=== PATIENT | female | born 1995 | race Caucasian/White ===

== ENCOUNTER 2025-05-03 16:20 | Outpatient (REF) | payer OTHER, SELFPAY ==
--- NOTE | ~2025-05-03 | XR_ITS ---
EXAMINATION: XR KNEE, LEFT CLINICAL INFORMATION: M25.561 - Pain in right knee COMPARISON: None available. TECHNIQUE: Three views of the left knee. FINDINGS: There is no joint effusion. There are no osteophytes. There is mild narrowing of the medial joint space. XR/XR knee LT 3V IMPRESSION: Mild nonspecific narrowing of the medial joint space. Electronically signed by: Ramirez Flores MD 05/03/2025 05:15 PM EDT
--- OUTSIDE RECORDS SUMMARY | 2025-05-03 17:55 | XMS_ITS | Encounter Summary ---
Author Organization [facility] Address [address] [place] [address] Phone Care Team Providers Care O And M Supervisor Name Role Phone Marysol Summers DO Primary Care Provider Unavaila ble Encounter Details Date Type Department Care Team (Late st Contact Info) Description 06/17/2011 Conversion Encounter [facility] [address] [place] [address] Social History Tobacco Use Types Packs/Day Years Used Date Smoking Tobacco: Never Assessed Comments Unknown Sex and Gender Information Value Date Recorded Sex Assigned at Not on file Legal Sex Female 6:40 PM EDT Gender Identity Not on file Sexual Orientation Not on file documented as of this encounter Plan of Treatment Not on file documented as of this encounter Visit Diagnoses Not on filedocumented in this encounter Care Teams O And M Supervisor Relationship Specialty Start Date End Date Marysol Summers DO PCP - General 12/28/17 documented as of this encounter
--- OUTSIDE RECORDS SUMMARY | 2025-05-03 17:55 | XMS_ITS | Encounter Summary ---
Author Organization [facility] Address [address] [place] [address] Care Team Providers Care Stone Carver Name Role Phone Guillaume Barksdale MD Primary Care Provider Reason for Visit * Reason Onset Date Comments Pre Syncope 10/30/2024 Encounter Details Date Type Department Care Team ([facility] st Contact Info) Description 10/30/2024 Nurse Triage Adult Medicine [address] [phone] Guillaume Barksdale MD [address] [place] [address] Social History Tobacco Use Types Packs/Day Years Used Date Smoking Tobacco: Former Cigarettes Q uit: 10/21/2015 Smokeless Tobacco: Never Alcohol Use Standard Drinks/Week Comments Yes 0 (1 standard drink = 0.6 oz pur e alcohol) Comments Unknown Sex and Gender Information Value Date Recorded Sex Assigned at Not on file Legal Sex Female 10:03 PM EST Gender Identity Not on file Sexual Orientation Not on file documented as of this encounter Progress Notes * Jamila Short RN - 10/30/2024 10:10 AM EDT She states she is at work ([employer] [facility] [place] and is still feeling weak and jittery. I advised if still feeling weak and jittery following a pre-syncopal episode to be evaluated in the ER. Pt. Agrees and is at hospital at present time Answer Assessment - Initial Assessment Questions 1. DESCRIPTION: Describe your dizziness. After intercourse developed pelvic pain sharp and shoot / excessive cramping 2. LIGHTHEADED: Do you feel lightheaded? (e.g., somewhat faint, woozy, weak upon standing) [place] lightheaded/dizzy and sweaty and clammy vomited and approx 15-20 minutes after had fluttery feeling in chest 3. VERTIGO: Do you feel like either you or the room is spinning or tilting? (i.e., vertigo) no 4. SEVERITY: How bad is it? Do you feel like you are going to faint? Can you stand and walk? - MILD: Feels slightly dizzy, but walking normally. - MODERATE: Feels unsteady when walking, but not falling; interferes with normal activities (e.g., school, work). - SEVERE: Unable to walk without falling, or requires assistance to walk without falling; feels like passing out now. Moderate dizziness and lightheadedness after intercourse 5. ONSET: When did the dizziness begin? After intercourse 6. AGGRAVATING FACTORS: Does anything make it worse? (e.g., standing, change in head position) After sex 7. HEART RATE: Can you tell me your heart rate? How many beats in 15 seconds? (Note: Not all patients can do this.) 8. CAUSE: What do you think is causing the dizziness? (e.g., decreased fluids or food, diarrhea, emotional distress, heat exposure, new medicine, sudden standing, vomiting; unknown) Vomited 9. RECURRENT SYMPTOM: Have you had dizziness before? If Yes, ask: When was the last time? Whathappened that time? Yes also after intercourse once within the last year 10. OTHER SYMPTOMS: Do you have any other symptoms? (e.g., fever, chest pain, vomiting, diarrhea,bleeding) No fever chest pain , no sob at present time 11. : Is there any chance you are ? When was your last menstrual period? 1 week ago Protocols used: Dizziness - [id number] * Cathy Neff - 10/30/2024 9:28 AM EDT Patient almost passed out last night would like to speak to a triage nurse documented in this encounter Plan of Treatment Not on file documented as of this encounter Visit Diagnoses Not on filedocumented in this encounter Care Teams Stone Carver Relationship Specialty Start Date End Date Guillaume Barksdale MD PCP - General Internal Medicine 03/05/21 documented as of this encounter
--- OUTSIDE RECORDS SUMMARY | 2025-05-03 17:55 | XMS_ITS | Clinical Summary ---
Author Organization [facility] Address [address] [place] [id number] Phone Care Team Providers Care Student Counselor Name Role Phone Marysol Summers DO Primary Care Provider Unavaila ble Immunizations Immunization Administration Dates Next Due DTaP 5 10/08/1997, 7,1996,06/14 HPV, Quadrivalent 09/20/2008,05/01/2008,02/16/20 08 Hep A, Adult 06/21/2017 Hep B, ped/adol 1996,1996,1996 Hib (PRP-T) 03/14/1997, 7,1996,06/14 IPV 03/24/2001 Influenza, injectable, quadr ivalent, preservative free 06/22/2016 Influenza, injectable, triva lent, preservative free 08/31/2012 MMR 06/03/2000,09/02/1997 Meningococcal Conj (Menactra) MCV4P 01/28/2014,0 02/16/2008 OPV 1996,1996,1996 Td (adult) (Tenivac), 5 Lf t etanus toxoid, PF, adsorbed 02/16/2008 Tdap 01/31/2014 Varicella 05/15/1997 Social History Tobacco Use Types Packs/Day Years Used Date Smoking Tobacco: Former Comments:Former Smoker Comments Unknown Sex and Gender Information Value Date Recorded Sex Assigned at Not on file Legal Sex Female 6:40 PM EDT Gender Identity Not on file Sexual Orientation Not on file Last Filed Vital Signs Vital Sign Reading Time Taken Comments Blood Pressure - - Pulse 64 06/21/2017 11:13 AM EDT Temperature 37.2 C (98.9 F) 12/13/2017 4:19 PM EDT Respiratory Rate - - Oxygen Saturation - - Inhaled Oxygen Concentration - - Weight 58.7 kg (129 lb 4.8 oz) 12/13/2017 4:19 P M EDT Height 159.4 cm (5' 2.75 ) 12/13/2017 4:19 PM ED T Body Mass Index 23.09 12/13/2017 4:19 PM EDT Plan of Treatment Health Maintenance Due Date Last Done Comments Varicella Vaccines (2 of 2 - 2-dose childhood series) 07/01/2000 05/15/1997 Influenza Vaccines (#1) 2025 06/22/2016, 08/31 COVID-19 Vaccine ( season) 2025 DTaP,Tdap,and Td Vaccines (8 - Td or Tdap) 01/29/2029 01/29/2019, 01/31/2014, 02/16/2008, Additional history exists Hepatitis B Vaccines Completed 1996, 1996, 1996 HIB Vaccines Aged Out 03/14/1997, 09/23, 1996, Additional history exists No longer eligible based on patient's age to complete this topic MMR Vaccines Completed 06/03/2000, 09/02/1997 IPV Vaccines Completed 03/24/2001, 09/23, 1996, Additional history exists HPV Vaccines Completed 09/20/2008, 04/22, 02/16/2008 Meningococcal Vaccine Completed 01/28/2014, 008 Hepatitis A Vaccines Aged Out 06/21/2017 No long er eligible based on patient's age to complete this topic Men B Vaccine Aged Out No longer elig ible based on patient's age to complete this topic Pneumococcal Vaccine Aged Out No long er eligible based on patient's age to complete this topic Insurance [facility] MEDICAID Care Teams Student Counselor Relationship Specialty Start Date End Date Marysol Summers DO PCP - General 12/28/17
--- OUTSIDE RECORDS SUMMARY | 2025-05-03 17:55 | XMS_ITS | Clinical Summary ---
Author Organization [address] Address [address] [place] [phone] Phone Care Team Providers Care X Ray Operator Name Role Phone Guillaume Barksdale MD Primary Care Provider [phone] Allergies Active Allergy Reactions Criticality Noted Date Comments Banana 02/19/2021 Oas Blueberry Flavor 02/19/2021 OAS Kiwi (Actinidia Chinensis) 1 OAS [place] 02/19/2021 OAS Medications citalopram (CeleXA) 40 mg tablet Take 1 Tab by mouth daily. Active ibuprofen (ADVIL,MOTRIN) 800 mg tablet Take 1 Tablet by mouth every 8 hours as needed (with FULL meal for joint pain). 4 Active lamoTRIgine (LaMICtal) 100 mg tablet Take 100 mg by mouth daily. Active lamoTRIgine (LaMICtal) 25 mg tablet TAKE 1 TABLET BY MOUTH EVERY DAY FOR 14 DAYS THEN TAKE 2 TABLETS DAILY WITH 100 MG LAMOTRIGINE 1 Active linaCLOtide (Linzess) 145 mcg capsule Take 1 capsule by mouth daily. 1 Active LORazepam (ATIVAN) 1 mg tablet Take 1 Tablet by mouth 2 times daily as needed for Anxiety. 3 Active EPINEPHrine (EpiPen 2-Billy) 0.3 mg/0.3 mL injection Inject 0.3 mL (0.3 mg total) into the thigh 1 (one) time for 1 dose. 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 V24, [facility] V28) Scoliosis 01/29/2019 Overview (08/02/2024): Braced age 12-13 for 1 year. No longer follows at [facility] for this. Disc degeneration of L2 Anxiety 01/22/2019 Irritable bowel syndrome 01/22/2019 Overview (08/02/2024): Dr Iqbal Immunizations Name Administration Dates Next Due DTaP (Infanrix) 6wks to less than 7yo ,1996,1996,06/14 PYcO-TEN-UWK (Pentacel) 2mo to less than 5yo 03/14/1997,1996,1996,06/14 HPV, Quadrivalent 09/20/2018,05/01/2008,02/16/20 08 Hepatitis A Adult (Havrix; V aqta) 19yo and older 01/23/2018,06/21/2017 Hepatitis B Pediatric (Enger ix B; Recombivax HB) to less than 20 yo 1996,1996,1996 IPV Inactivated polio (Ipol) 6wks and older 03/24/2001,1996,1996,06/14 Influenza, Unspecified 06/08/2023,06/07/2022,07/2021 MMR, measles mumps and rubel la Live (Priorix; M-M-R II) 12mo and older 02/12/2021,06/03/2004,09/02/1997 Meningococcal MCV4P 01/28/2014,02/16/2008 Pfizer SARS-CoV-2 COVID-19, mRNA, LNP-S, preservative free 01/22/2021 Td Tetanus diptheria (Tdvax) 7yo and older 02/16/2008 Tdap Tetanus diptheria acell ular pertussis (Boostrix; Adacel) 7yo and older 01/29/2019,01/31/2014 Varicella live (Varivax) 12m o and older 05/15/1997 Surgical History Surgery Date Site/Laterality Comments COLONOSCOPY 03/16/2016 PROCEDURE: HISTORICAL COLONOSCOPY; COMMENT: no report UPPER GASTROINTESTINAL ENDOSCOPY 03/16/2016 PROCEDURE: CA UPPER GI ENDOSCOPY PERFORMED; COMMENT: no report TONSILLECTOMY 03/2022 PROCEDURE: HISTORICAL TONSILLECTOMY; COMMENT: d/t recurrent stones Medical History Medical History Date Comments Depression 01/22/2019 DX:Depression Anxiety 01/22/2019 DX:Anxiety Lead poisoning 03/13/2019 DX:Lead poisonin g; COMMENT: History Asthma 03/13/2019 DX:Asthma Irritable bowel syndrome 01/22/2019 DX:Irri table bowel syndrome; COMMENT: Dr Iqbal Atypical chest pain 01/29/2019 DX:Atypical chest pain Bilateral hip bursitis 01/29/2019 DX:Bilate ral hip bursitis Bipolar 2 disorder ([facility] V24, CMS/HCC V28) 01/29/2019 DX:Bipolar 2 disorder ([facility]) Scoliosis 01/29/2019 DX:Scoliosis; CO MMENT: Braced age 12-13 for 1 year. No longer follows at [facility] for this. 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 DX:DDD (degenerative disc di sease), thoracic Esophageal reflux DX:Esophageal reflux Family History Medical History Relation Name Comments Hypertension Brother 1 Donny High cholestero l Other: scoliosis Brother 2 Memo Alcohol abuse Father Sanjay HTN Diabetes Father's side great aunt Coronary artery disease Maternal Grandfather [place] (50s), hypercholesterolemia COPD Maternal Grandmother asthma Asthma Mother Lindsey HTN, HLD, anemi a, bipolar1, anxiety, hearing loss, prediabetes, COPD (+smoker), seasonal allergies Diabetes Paternal Grandmother HTN No Known Problems Sister Shiana Mental illness Uncle paternal Relation Name Status Comments Brother 1 Donny Alive Brother 2 Memo Alive Father Peter Alive Father's side great aunt Maternal Grandfather Maternal Grandmother Alive Mother Lindsey Alive Paternal Grandfather unknown Other Paternal Grandmother Alive Sister Shiana Alive Uncle paternal Social History Tobacco Use Types Packs/Day Years Used Date Smoking Tobacco: Former Cigarettes Q uit: 10/21/2015 Smokeless Tobacco: Never Tobacco Cessation:Counseling Given: Not Answered Alcohol Use Standard Drinks/Week Comments Yes 0 (1 standard drink = 0.6 oz pur e alcohol) Comments Unknown Sex and Gender Information Value Date Recorded Sex Assigned at Not on file Legal Sex Female 10:03 PM EST Gender Identity Not on file Sexual Orientation Not on file Obstetrics History Last Filed Vital Signs Vital Sign Reading Time Taken Comments Blood Pressure 120/70 10/31/2024 12:22 PM EDT Pulse 56 10/31/2024 12:22 PM EDT Temperature 36.1 C (96.9 F) 10/31/2024 12:22 PM EDT Respiratory Rate - - Oxygen Saturation 99% 10/31/2024 12:22 PM EDT Inhaled Oxygen Concentration - - Weight 78.7 kg (173 lb 8 oz) 10/31/2024 12:22 PM EDT Height 160 cm (5' 2.99 ) 10/31/2024 12:22 PM EDT Body Mass Index 30.74 10/31/2024 12:22 PM EDT Plan of Treatment Health Maintenance Due Date Last Done Comments Pneumococcal Vaccine: Pediatrics (0 to 5 Years) and At-Risk Patients (6 to 49 Years) (1 of 2 - PCV) 2015 Cervical Cancer Screening: Pap Smear 2017 Social Influencers of Health Screening 07/24/2022 Depression Screening 08/22/2024 COVID-19 Vaccine ( season) 2025 01/22/2021, 01/01/2021 Influenza Vaccine (#1) 2025 , 06/07/2022, 06/02/2021, Additional history exists Cholesterol Screening (Lipid Panel) 12/29/2027 12/28/2022 DTaP,Tdap,and Td Vaccines (8 - Td or Tdap) 01/29/2029 01/29/2019, 01/31/2014, 02/16/2008, Additional history exists Hepatitis B Vaccines Completed 1996, 1996, 1996 HIB Vaccines Aged Out 03/14/1997, 02/20, 1996, Additional history exists No longer eligible based on patient's age to complete this topic Varicella Vaccines Aged Out 05/15/1997 No longer eligible based on patient's age to complete this topic IPV Vaccines Completed 03/24/2001, 02/20, 1996, Additional history exists Meningococcal ACWY Vaccine Completed 01/28/2014, Hepatitis A Vaccines Aged Out 01/23/2018, 06/21/20 17 No longer eligible based on patient's age to complete this topic HPV Vaccines Completed 09/20/2018, 08/24, 05/01/2008, Additional history exists HIV Screening Completed 04/02/2019 Hepatitis C Screening Completed 04/02/2019 MMR Vaccines Completed 02/12/2021, 05/22, 06/03/2000, Additional history exists Meningococcal B Vaccine Aged Out No l onger eligible based on patient's age to complete this topic RSV Immunization Patients Under 20 months Aged Out No longer eligible based on patient's age to complete this topic Procedures Procedure Name Priority Date/Time Associated Diagnosis Comments LIPID PANEL Routine 12/28/2022 HEPATITIS C SCREENING Routine 04/02/2019 HIV SCREENING Routine 04/02/2019 from Last 3 Months or Most Recently Relevant to Health Maintenance Results * (ABNORMAL) Lipid panel (12/28/2022) [facility] LDL/HDL Ratio 3 0 - 4 Triglycerides 64 0 - 150 mg/dL Cholesterol 195 0 - 200 mg/dL HDL 72 >=40 mg/dL LDL Cholesterol 111(A) 0 - 100 mg/dL Blood Venous blood specimen / Unknown Historical Provider LAB BLOOD ORDERABLES Nicki l Result * HIV Screening (04/02/2019) Pathologist [facility] HIV Screening Abstracted us Historical Provider HEALTH MAINTENANCE Final Result * Hepatitis C Screening (04/02/2019) [facility] Hepatitis C Screening Abstracted us Historical Provider HEALTH MAINTENANCE Final Result from Last 3 Months or Most Recently Relevant to Health Maintenance Insurance [facility] Care Teams X Ray Operator Relationship Specialty Start Date End Date Guillaume Barksdale MD PCP - General Internal Medicine 03/05/21
== END 2025-05-03 16:21 | disposition home or self-care (01) ==
LOC: HO.XRAY 16:20
PROVIDERS: PCP Physician Assistant; Visit Provider Physician Assistant
DX: M25.562 Pain in left knee (principal)
CPT/HCPCS: 73562

== ENCOUNTER → 2025-05-03 16:23 | Outpatient (BNV) | payer OTHER, SELFPAY | PROVIDERS: PCP Physician Assistant; Visit Provider Radiology Diagnostic Radiology | DX: M25.562 Pain in left knee (principal) | CPT/HCPCS: 73562 ==

== ENCOUNTER 2025-05-14 11:13 | Outpatient (AMB) | payer OTHER, SELFPAY ==
[2025-05-14 11:20] VITALS: BP 120/80; PULSE 50; TEMP 36.7; O2SAT 99; BMI 29.3
--- NOTE | 2025-05-14 11:20 | A.OFFPC_ITS ---
Vital Signs 05/14/25 11:20 Height 5 ft 2 in Weight 72.575 kg BMI 29.3 BP 120/80 Blood Pressure Location Lt brachial Position Sitting Pulse 50 Pulse Source Pulse Oximeter Temp 98.1 F Temp Source Temporal Artery Scan Pulse Oximetry (%) 99 Oxygen Delivery Method Room Air Intake Visit Reasons: Annual PE Pickle Solution Maker Required: No Accompanied by: Self / Same As Patient Allergies No Known Allergies Allergy (Unverified 04/10/25 15:44) Tobacco use date assessed: 05/14/25 Dental Screening Dental Screen Date: 05/14/25 Did you have a dental visit in the last 12 months?: Yes Did you have a dental problem in the last 6 months where you did not have access to dental care?: No HPI HPI Comments History of Present Illness Details 30-year-old female with history of bipol ar disorder, anxiety, PTSD, IBS with constipation, asthma, chronic back pain/scoliosis presenting to the office today to establish care and for annual physical exam. She currently lives by herself in an apartment. She works as a medical record specialist in the practice. She is not currently exercising but is motivated to resume exercising next week. Not always following a healthy diet. She is also vaping nicotine multiple times per day but does not smoke cigarettes. She also smokes marijuana on a nightly basis. Rare alcohol use. No illicit drug use. Bipolar disorder-following with psychiatry/counseling. Symptoms uncontrolled recently and is awaiting registering for DVT partial hospitalization program. Lamictal recently increased to 150 mg daily. Also on citalopram 40 mg every morning, lorazepam very rarely, and has hydroxyzine to help at bedtime but has not yet tried this. PHQ-9 score 9, rocio 7 score 16. Vague suicidal ideation/passive. No active thoughts or plan [id number] controlled on Linzess asthma- only using albuterol when sick. No recent illness. Never required steroids Scoliosis- braced at [employer] [facility] for 1 year. Still with chronic mid and low back pain DDD Bilateral hip bursitis/chronic low back pain-ibuprofen as needed. Overall tolerable Recent fall with knee contusion and ongoing pain. XR of the left knee showed some medial compartment narrowing but was otherwise unremarkable. She has been referred to Orthopedics but has not been scheduled for an appointment. No longer requiring any tramadol but does use ibuprofen as needed as well as ice. The pain has slightly improved and she is able to ambulate. Concerns: None Health maintenance: [facility] RETAINING ROOM CUTTER- abn pap last year, repeat in several. H/o colposcopy, negative Bx. No other procedure at that time Mammograms started H 41 Colonoscopies to start at age 46 Reviewed past medical, surgical, family, social history ROS: General: No fevers, malaise, unintentional weight loss HEENT: No blurred vision, diplopia. No sore throat, nasal congestion, rhinor joan, sinus pain, ear pain. No hearing loss Neck - no adenopathy Cardiovascular: No chest pain, palpitations, or leg edema Respiratory: No shortness of breath, wheezing, cough Breast: No pain, palpable lumps, nipple inversion GI: No dysphagia, odynophagia, globus sensation. No abdominal pain, nausea, vomiting, diarrhea, constipation, melena, hematochezia : No dysuria, hematuria, increased urinary frequency, decreased urinary output. RETAINING ROOM CUTTER: No abn vaginal bleeding or discharge MSK: No myalgia, see HPI Neuro: No headaches, weakness, paresthesias Psych: no depression/anxiery. No AH/VH. No SI/HI Skin: No rashes or lesions EXAM: Constitutional - Awake and Alert, No apparent distress Eyes - PERRLA, EOMI. Anicteric Ears - external ears normal, canals clear, TMs intact and pearly mohan with good cone of light Nose- septum midline, nares clear, no sinus tenderness Mouth/throat- mucosa moist, tongue and uvula midline, no erythema/edema or tonsillar adenopathy. Neck-trachea midline, thyroid symmetric without palpable nodules, no adenopathy Cardiovascular - S1S2, RRR, No edema Respiratory - Normal lung expansion, Normal respiratory effort, No respiratory distress, CTA bilaterally Gastrointestinal - NT / ND; +BS; No rebound or guarding - No CVA tenderness Extremities - no calf tenderness bilaterally, no swelling Musculoskeletal - Normal inspection, normal ROM Skin - Warm/Dry, no concerning lesions Neurological - Alert & oriented x3, CN II-XII in tact, 5/5 strength BUE and BLE, 2+ patellar reflexes, sensation intact Psychological - Appropriate affect [facility] Medical History Anxiety PTSD (post-traumatic stress disorder) Bipolar II disorder Irritable bowel syndrome with constipation Chronic back pain Scoliosis Asthma Bilateral knee pain Spasm of muscle of lower back Surgical History S/P tonsillectomy Family History Mother Mental health disorder HTN (hypertension) Father Substance abuse HTN (hypertension) Paternal Grandmother Diabetes Maternal Grandfather CAD (coronary artery disease), Onset Age: 55 Maternal Grandmother COPD (chronic obstructive pulmonary disease) Social History Housing: Apartment Patient Tobacco Use Status: Never used Tobacco e-Cigarette/Vaping Use: Never Used service: No Current occupational status: employed Cognitive needs: No Hearing needs: No Vision needs: No Questionnaire PHQ-9 Over the last 2 weeks, how often have you been bothered by any of the following problems? 1. Little interest or pleasure in doing things: not at all 2. Feeling down, depressed, or hopeless: several days 3. Trouble falling or staying asleep, or sleeping too much: nearly every day 4. Feeling tired or having little energy: more than half the days 5. Poor appetite or overeating: not at all 6. Feeling bad about yourself - or that you are a failure or have let yourself or your family down: not at all 7. Trouble concentrating on things, such as reading the newspaper or watching television: more than half the days 8. Moving or speaking so slowly that other people could have noticed. Or the opposite - being so fidgety or restless that you have been moving around a lot more than usual: not at all 9. Thoughts that you would be better off or of hurting yourself in some way: several days Total score: 9 Depression Screening Interpretation: Positive Depression Screening Done: Yes 04832 - PHQ-9 Billing: Yes Source: Developed by Drs. Xiang Oliva, Lucia Parikh, Robi Smith and colleagues, with an educational rico from [email or web address]. Thrive Questionnaire Date Thrive assessed: 05/14/25 I am a: Patient Within the past 12 months, did the food you bought not last and you didn't have the money to get more?: Never true Within the past 12 months, did you worry whether your food would run out before you got money to buy more?: Never true Do you have trouble paying for medicines?: No Do you have trouble getting transportation to medical appointments?: No Do you have trouble paying your heating and electricity bill?: No Do you have trouble taking care of your child, family member or friend?: No Do you have trouble with day-to-day activities such as bathing, preparing meals, shopping, managing finances, etc.?: No Are you currently unemployed and looking for a job?: No Are you interested in more education?: No THRIVE Score: 0 AUDIT C Alcohol Use Questionnaire (AUDIT-C) 1. How often do you have a drink containing alcohol?: Never 3. How often do you have six or more drinks on one occasion?: Never Total Score: 0 ROCIO-7 AMB Questionnaire ROCIO-7 Date ROCIO - 7 assessed: 05/14/25 Feeling nervous, anxious, or on edge: 2 = More than half the days Not being able to stop or control worryin = Nearly every day Worrying too much about different things: 3 = Nearly every day Trouble relaxin = Nearly every day Being so restless that it is hard to sit still: 2 = More than half the days Becoming easily annoyed or irritable: 2 = More than half the days Feeling afraid as if something awful might happen: 1 = Several days Total ROCIO-7 score (0-4 normal; 5-9 mild; 10-14 moderate; 15-21 severe): 16 Source: Developed by Drs. Xiang Oliva, Lucia Parikh, Robi Smith and colleagues, with an educational rico from [email or web address]. ROCIO-7 Assessment Billing ROCIO-7 Assessment Tool: ROCIO-7 Assessment 58405 Physical exam (Primary Care) Vital Signs: Last Vital Signs Temp 98.1 F 05/14/25 11:20 Pulse 50 05/14/25 11:20 BP 120/80 05/14/25 11:20 Pulse Ox 99 05/14/25 11:20 Oxygen Delivery Method Room Air 05/14/25 11:20 BMI result Body Mass Index 29.3 Tobacco/Smoking Status: Tobacco use Status Tobacco use date assessed 05/14/25 05/14/25 11:31 Patient Tobacco Use Status Never used Tobacco 05/14/25 11:31 e-Cigarette/Vaping Use Never Used 05/14/25 11:31 PHQ-9: PHQ-9 Score PHQ-9: Total score 9 05/14/25 11:31 Depression Screening Interpretation: Positive Thrive Assessment: Date of Thrive Assessment Date Thrive assessed 05/14/25 05/14/25 11:31 Coding Level of Care Code New Pt Prev Care 18-39yr(71306 Diagnoses Routine medical exam Z00.00 Bipolar II disorder F31.81 Irritable bowel syndrome with constipation K58.1 Asthma J45.909 Additional Codes PHQ-9 - 45920 - PHQ-9 Billing: Yes ([id number]) ROCIO-7 Assessment Billing - ROCIO-7 Assessment Tool: ROCIO-7 Assessment 81731 ([id number]) Assessment & Plan Assessment & Plan (1) Routine medical exam: Code(s): Z00.00 - Encounter for general adult medical examination without abnormal findings Plan: 30-year-old female presenting for annual physical exam. Plan as below (2) Bipolar II disorder: Code(s): F31.81 - Bipolar II disorder Category: Medical Plan: Improving though PHQ-9 and rocio 7 scores are still elevated. Continue following with Psychiatry. Continue increased dose of Lamictal as well as citalopram and advised she can use hydroxyzine and lorazepam as needed. Encouraged to proceed with referral to [facility] partial hospitalization (3) Irritable bowel syndrome with constipation: Code(s): K58.1 - Irritable bowel syndrome with constipation Category: Medical Plan: Stable. Continue Linzess (4) Asthma: Code(s): J45.909 - Unspecified asthma, uncomplicated Category: Medical Plan: Mild intermittent. Albuterol as needed Plan Routine screening labs as ordered below Continue with screening Pap smears Continue following for annual skin exams and use sun protection Annual eye exams Dental exams twice yearly Wear seat belt in car Recommend regular exercise and healthy diet Follow-up for 1 year, sooner as needed Counseled against smoking any substances including marijuana, can use pictures or edibles. Strongly encouraged cessation of vaping. Orders: Orders Basic Metabolic Panel Today F31.81 - Bipolar II disorder, F41.9 - Anxiety disorder, unspecified, K58.1 - Irritable bowel syndrome with constipation, Z00.00 - Encounter for general adult medical examination without abnormal findings Liver Panel Today F31.81 - Bipolar II disorder, F41.9 - Anxiety disorder, unspecified, K58.1 - Irritable bowel syndrome with constipation, Z00.00 - Encounter for general adult medical examination without abnormal findings TSH reflex Free T4 Today F31.81 - Bipolar II disorder, F41.9 - Anxiety disorder, unspecified, K58.1 - Irritable bowel syndrome with constipation, Z00.00 - Encounter for general adult medical examination without abnormal findings Vitamin D 25-OH Total Today F31.81 - Bipolar II disorder, F41.9 - Anxiety disorder, unspecified, K58.1 - Irritable bowel syndrome with constipation, Z00.00 - Encounter for general adult medical examination without abnormal findings Complete Blood Count Auto Diff Today F31.81 - Bipolar II disorder, F41.9 - Anxiety disorder, unspecified, K58.1 - Irritable bowel syndrome with constipa tion, Z00.00 - Encounter for general adult medical examination without abnormal findings Lipid Panel Today F31.81 - Bipolar II disorder, F41.9 - Anxiety disorder, unspecified, K58.1 - Irritable bowel syndrome with constipation, Z00.00 - Encounter for general adult medical examination without abnormal findings
--- OUTSIDE RECORDS SUMMARY | 2025-05-14 14:03 | XMS_ITS | Encounter Summary ---
Author Organization [facility] Address [address] [place] [address] Care Team Providers Care Propellant Assembler Name Role Phone Guillaume Barksdale MD Primary Care Provider [phone] Reason for Visit * Reason Onset Date Comments Pre Syncope 10/30/2024 Encounter Details Date Type Department Care Team ([facility] st Contact Info) Description 10/30/2024 Nurse Triage Adult Medicine [address] [phone] Guillaume Barksdale MD [address] [place] [address] Social History Tobacco Use Types Packs/Day Years [...] EDT She states she is at work ([employer]) and is still feeling weak and jittery. [...] (e.g., somewhat faint, woozy, weak upon standing) [place] lightheaded/dizzy and sweaty and clammy vomited and [...] 1 week ago Protocols used: Dizziness - [id number] * Cathy Neff - 10/30/2024 9:28 AM EDT Patient almost passed out last night would like to speak to a triage nurse documented in this encounter Plan of Treatment Not on file documented as of this encounter Visit Diagnoses Not on filedocumented in this encounter Care Teams Propellant Assembler Relationship Specialty Start Date End Date Guillaume Barksdale MD PCP - General Internal Medicine 03/05/21 documented as of this encounter
--- OUTSIDE RECORDS SUMMARY | 2025-05-14 14:03 | XMS_ITS | Clinical Summary ---
Author Organization [employer] Address [address] [facility] [place] [address] Care Team Providers Care Trade Show Coordinator Name Role Phone Pcp, No Primary Care Provider [phone] Allergies Active Allergy Reactions Criticality Noted Date Comments Banana 02/19/2021 Oas Blueberry Flavor 02/19/2021 OAS Kiwi (Actinidia Chinensis) OAS [place] 02/19/2021 OAS Medications albuterol (VENTOLIN HFA) 90 mcg/actuation inhaler Inhale 2 puffs 10/15/19 21 Active choriogonadotrop in celina,humrec (Ovidrel) 250 mcg/0.5 mL injection Inject 250 mcg subcutaneously 06/18/20 22 Active citalopram hydrobromide (CELEXA ORAL) Take 40 mg by mouth 08/20/ 0 14 Active citalopram (CeleXA) 40 MG tablet TAKE 1 TABLET BY MOUTH EVERY DAY IN THE MORNING 07/07/20 22 Active citalopram (CeleXA) 40 MG tablet Take 1 tablet (40 mg total) by mouth Active EPINEPHrine 0.3 mg/0.3 mL syrg Inject 0.3 mg intramuscularly 01/21/20 21 Active lamoTRIgine (LaMICtal) 100 MG tablet Take 1 tablet (100 mg total) by mouth 05/31/20 18 Active lamoTRIgine (LaMICtal) 100 MG tablet TAKE 1 TABLET BY MOUTH ONCE A DAY STOP MEDICATION IF RASH OCCURS AND FOLLOW UP IMMEDIATELY 06/01/20 22 Active lamoTRIgine (LaMICtal) 25 MG tablet TAKE 2 TABLETS BY MOUTH EVERY DAY 05/22/20 22 Active lamoTRIgine (LaMICtal) 25 MG tablet TAKE 1 TABLET BY MOUTH EVERY DAY FOR 14 DAYS THEN TAKE 2 TABLETS DAILY WITH 100 MG LAMOTRIGINE 03/09/20 21 Active Social History Tobacco Use Types Packs/Day Years Used Date Smoking Tobacco: Never Smokeless Tobacco: Never Tobacco Cessation:Counseling Given: Not Answered Comments No Sex and Gender Information Value Date Recorded Sex Assigned at Not on file Legal Sex Female 9:13 PM EDT Gender Identity Not on file Sexual Orientation Not on file Last Filed Vital Signs Vital Sign Reading Time Taken Comments Blood Pressure 112/68 08/13/2022 2:19 PM EST Pulse 74 08/13/2022 2:19 PM EST Temperature 36.6 C (97.8 F) 08/13/2022 2:19 PM EST Respiratory Rate 17 08/13/2022 2:19 PM EST Oxygen Saturation 97% 08/13/2022 2:19 PM EST Inhaled Oxygen Concentration - - Weight - - Height - - Body Mass Index - - Plan of Treatment Health Maintenance Due Date Last Done Comments Depression: Screening Annually using PHQ-2/9 in Adults 18 yrs or above (or HM Modifier)([facility]) 2014 Hepatitis C Virus Infection in Adolescents and Adults: Screening (or Modifier) ([facility]) 2014 SDOH Screening Reminder: Annually for all adults ([facility]) 2014 Tobacco Smoking Cessation: i n Adults excluding Women: Behavioral and Pharmacotherapy Interventions ([facility]) 2014 Cervical Cancer Screenin-65 yrs of age (or Modifier) 2017 Cervical Cancer Screening: Pap every 3 yrs pts age 21-65 2017 Cervical Cancer: Pap Screening with Modifier timing ([facility]) 2017 Cervical Cancer: hrHPV alone or with cotesting Pap for Pts 30-65yrs screening every 5yrs ([facility]) 2017 Flu Vaccination: Yearly for ages 18mos through 64 years (or Modifier)([facility]) 03/22/2025 COVID-19 Vaccine Screening: Initial Series and Booster Status ([facility]) ( - 2024- season) 2025 01/22/2021, 01/01/2021 DTaP/Tdap/Td Vaccines ([facility]) (8 - Td or Tdap) 01/29/2029 01/29/2019, 01/31/2014, 02/16/2008, Additional history exists Zoster/Shingles Vaccine Series Screening: Adults aged 18+ yrs (or HM Modifiers)([facility]) (1 of 2) 2046 05/15/1997 Pneumococcal Vaccination Screening: Pts 0-19 & 19-49 yrs of age ([facility]) Aged Out No longer eligible based on patient's age to complete this topic Medical Devices Not on file Insurance [facility] Care Teams Trade Show Coordinator Relationship Specialty Start Date End Date Pcp, No PCP - General Family Medicine 12/02/20
--- OUTSIDE RECORDS SUMMARY | 2025-05-14 14:03 | XMS_ITS | Clinical Summary ---
Author Organization [address] Address [address] [place] [phone] Phone Care Team Providers Care Sales And Service Change Leader Name Role Phone Guillaume Barksdale MD Primary Care Provider [phone] Allergies Active Allergy Reactions Criticality Noted Date Comments Banana 02/19/2021 Oas Blueberry Flavor 02/19/2021 OAS Kiwi (Actinidia Chinensis) 1 OAS [place] 02/19/2021 OAS Medications citalopram (CeleXA) 40 mg [...] 03/13/2019 Overview (08/02/2024): History Bipolar 2 disorder ([facility] V24, [facility] V28) Scoliosis 01/29/2019 Overview (08/02/2024): Braced age 12-13 for 1 year. No longer follows at [facility] for this. Disc degeneration of L2 Anxiety 01/22/2019 Irritable bowel syndrome 01/22/2019 Overview (08/02/2024): Dr Iqbal Immunizations Name Administration Dates Next Due DTaP (Infanrix) 6wks to less than 7yo ,1996,1996,06/14 [id number] (Pentacel) 2mo to less than 5yo 03/14/1997,1996,1996,06/14 [...] no report UPPER GASTROINTESTINAL ENDOSCOPY 03/16/2016 PROCEDURE: [place] UPPER GI ENDOSCOPY PERFORMED; COMMENT: no report [...] DX:Bilate ral hip bursitis Bipolar 2 disorder ([facility] V24, CMS/HCC V28) 01/29/2019 DX:Bipolar 2 disorder ([facility]) Scoliosis 01/29/2019 DX:Scoliosis; CO MMENT: Braced age 12-13 for 1 year. No longer follows at [facility] for this. 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 DX:DDD (degenerative disc di sease), thoracic Esophageal reflux DX:Esophageal reflux Family History Medical History Relation Name Comments Hypertension Brother 1 Donny High cholestero l Other: scoliosis Brother 2 Memo Alcohol abuse Father Sanjay HTN Diabetes Father's side great aunt Coronary artery disease Maternal Grandfather [place] (50s), hypercholesterolemia COPD Maternal Grandmother asthma Asthma [...] Maintenance Results * (ABNORMAL) Lipid panel (12/28/2022) [facility] LDL/HDL Ratio 3 0 - 4 Triglycerides 64 0 - 150 mg/dL Cholesterol 195 0 - 200 mg/dL HDL 72 >=40 mg/dL LDL Cholesterol 111(A) 0 - 100 mg/dL Blood Venous blood specimen / Unknown Historical Provider LAB BLOOD ORDERABLES Nicki l Result * HIV Screening (04/02/2019) Pathologist [facility] HIV Screening Abstracted us Historical Provider HEALTH MAINTENANCE Final Result * Hepatitis C Screening (04/02/2019) [facility] Hepatitis C Screening Abstracted us Historical Provider HEALTH MAINTENANCE Final Result from Last 3 Months or Most Recently Relevant to Health Maintenance Insurance [facility] Care Teams Sales And Service Change Leader Relationship Specialty Start Date End Date Guillaume Barksdale MD PCP - General Internal Medicine 03/05/21
--- OUTSIDE RECORDS SUMMARY | 2025-05-14 14:03 | XMS_ITS | Encounter Summary ---
Author Organization [facility] Address [address] [place] [address] Phone Care Team Providers Care Artificial Flower Maker Name Role Phone Marysol Summers DO Primary Care Provider Unavaila ble Encounter Details Date Type Department Care Team (Late st Contact Info) Description 06/17/2011 Conversion Encounter [facility] [address] [place] [address] Social History Tobacco Use Types Packs/Day Years [...] on filedocumented in this encounter Care Teams Artificial Flower Maker Relationship Specialty Start Date End Date Marysol Summers DO PCP - General 12/28/17 documented as of this encounter
--- OUTSIDE RECORDS SUMMARY | 2025-05-14 14:03 | XMS_ITS | Clinical Summary ---
Author Organization [facility] Address [address] [place] [phone] Phone Care Team Providers Care Laborer Filter Plant Name Role Phone Marysol Summers DO Primary [...] patient's age to complete this topic Insurance [facility] MEDICA[employer] Care Teams Laborer Filter Plant Relationship Specialty Start Date End Date Marysol Summers DO PCP - General 12/28/17
== END 2025-05-14 13:07 | disposition home or self-care (01) ==
LOC: HO.HMCHD 11:13
PROVIDERS: PCP Internal Medicine; Visit Provider Physician Assistant
DX: Z00.00 Encounter for general adult medical examination without abnormal findings (principal); F31.81 Bipolar II disorder; K58.1 Irritable bowel syndrome with constipation; J45.909 Unspecified asthma, uncomplicated

== ENCOUNTER → 2025-05-14 11:13 | Outpatient (BNVA) | payer OTHER, SELFPAY | PROVIDERS: PCP Internal Medicine; Visit Provider Physician Assistant | DX: Z00.00 Encounter for general adult medical examination without abnormal findings (principal); F31.81 Bipolar II disorder; K58.1 Irritable bowel syndrome with constipation; J45.909 Unspecified asthma, uncomplicated; Z79.899 Other long term (current) drug therapy; Z13.31 Encounter for screening for depression; Z13.39 Encounter for screening examination for other mental health and behavioral disorders | CPT/HCPCS: 96127 ==

== ENCOUNTER 2025-05-20 09:10 | Outpatient (REF) | payer OTHER, SELFPAY ==
[2025-05-20 09:23] LABS: MANUAL DIFF FLAG NO
[2025-05-20 09:40] LABS: Hematocrit 41.8 % (37.0-47.0); Hemoglobin 14.0 g/dl (12.0-16.0); Imm Gran Abs Auto 0.02 X10*3/uL (0.00-0.03); Imm Gran Pct Auto 0.3 % (0.0-0.4); Lymphocytes Absolute Auto 1.9 X10*3/uL (1.2-4.9); Mean Corpuscular HGB Conc 33.5 g/dl (31.0-35.0); Mean Corpuscular Hemoglobin 31.5 pg (27.0-33.0); Mean Corpuscular Volume 93.9 fL (80.0-98.0); NRBC Abs Auto 0.000 X10*3/uL (0.0-0.012); NRBC Pct Auto 0.0 /100WBC (0.0-0.2); Platelet Count 294 X10*3/uL (160-400); Red Blood Count 4.45 X10*6/uL (4.20-5.50); White Blood Count 6.8 X10*3/uL (4.8-10.8)
--- OUTSIDE RECORDS SUMMARY | 2025-05-20 09:50 | XMS_ITS | Clinical Summary ---
Author Organization [address] Address [address] [place] [phone] Phone Care Team Providers Care Finish Specialist Name Role Phone Guillaume Barksdale MD Primary Care Provider [phone] Allergies Active Allergy Reactions Criticality Noted Date Comments Banana 02/19/2021 Oas Blueberry Flavor 02/19/2021 OAS Kiwi (Actinidia Chinensis) 1 OAS [place] 02/19/2021 OAS Medications citalopram (CeleXA) 40 mg [...] 03/13/2019 Overview (08/02/2024): History Bipolar 2 disorder ([facility] V24, [facility] V28) Scoliosis 01/29/2019 Overview (08/02/2024): Braced age 12-13 for 1 year. No longer follows at [facility] for this. Disc degeneration of L2 Anxiety 01/22/2019 Irritable bowel syndrome 01/22/2019 Overview (08/02/2024): Dr Iqbal Immunizations Immunization Administration Dates Next Due DTaP (Infanrix) 6wks to less than 7yo ,1996,1996,06/14 [id number] (Pentacel) 2mo to less than 5yo 03/14/1997,1996,1996,06/14 [...] no report UPPER GASTROINTESTINAL ENDOSCOPY 03/16/2016 PROCEDURE: [place] UPPER GI ENDOSCOPY PERFORMED; COMMENT: no report [...] DX:Bilate ral hip bursitis Bipolar 2 disorder ([facility] V24, CMS/HCC V28) 01/29/2019 DX:Bipolar 2 disorder ([facility]) Scoliosis 01/29/2019 DX:Scoliosis; CO MMENT: Braced age 12-13 for 1 year. No longer follows at [facility] for this. 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 DX:DDD (degenerative disc di sease), thoracic Esophageal reflux DX:Esophageal reflux Family History Medical History Relation Name Comments Hypertension Brother 1 Donny High cholestero l Other: scoliosis Brother 2 Memo Alcohol abuse Father Sanjay HTN Diabetes Father's side great aunt Coronary artery disease Maternal Grandfather [place] (50s), hypercholesterolemia COPD Maternal Grandmother asthma Asthma [...] Maintenance Results * (ABNORMAL) Lipid panel (12/28/2022) [facility] LDL/HDL Ratio 3 0 - 4 Triglycerides [...] Final Result * Hepatitis C Screening (04/02/2019) [facility] Hepatitis C Screening Abstracted us Historical Provider HEALTH MAINTENANCE Final Result from Last 3 Months or Most Recently Relevant to Health Maintenance Insurance [facility] Care Teams Finish Specialist Relationship Specialty Start Date End Date Guillaume Barksdale MD PCP - General Internal Medicine 03/05/21
--- OUTSIDE RECORDS SUMMARY | 2025-05-20 09:50 | XMS_ITS | Clinical Summary ---
Author Organization [employer] Address [address] [facility] [email or web address] [address] Care Team Providers Care Account Representative Name Role Phone Pcp, No Primary Care Provider [phone] Allergies Active Allergy Reactions Criticality Noted Date Comments Banana 02/19/2021 Oas Blueberry Flavor 02/19/2021 OAS Kiwi (Actinidia Chinensis) OAS [place] 02/19/2021 OAS Medications albuterol (VENTOLIN HFA) 90 [...] Adults 18 yrs or above (or HM Modifier)([facility]) 2014 Hepatitis C Virus Infection in Adolescents and Adults: Screening (or Modifier) ([facility]) 2014 SDOH Screening Reminder: Annually for all adults ([facility]) 2014 Tobacco Smoking Cessation: i n Adults excluding Women: Behavioral and Pharmacotherapy Interventions ([facility]) 2014 Cervical Cancer Screenin-65 yrs of age (or Modifier) 2017 Cervical Cancer Screening: Pap every 3 yrs pts age 21-65 2017 Cervical Cancer: Pap Screening with Modifier timing ([facility]) 2017 Cervical Cancer: hrHPV alone or with cotesting Pap for Pts 30-65yrs screening every 5yrs ([facility]) 2017 Flu Vaccination: Yearly for ages 18mos through 64 years (or Modifier)([facility]) 03/22/2025 COVID-19 Vaccine Screening: Initial Series and Booster Status ([facility]) ( - 2024- season) 2025 01/22/2021, 01/01/2021 DTaP/Tdap/Td Vaccines ([facility]) (8 - Td or Tdap) 01/29/2029 01/29/2019, 01/31/2014, 02/16/2008, Additional history exists Zoster/Shingles Vaccine Series Screening: Adults aged 18+ yrs (or HM Modifiers)([facility]) (1 of 2) 2046 05/15/1997 Pneumococcal Vaccination Screening: Pts 0-19 & 19-49 yrs of age ([facility]) Aged Out No longer eligible based on patient's age to complete this topic Medical Devices Not on file Insurance [facility] Care Teams Account Representative Relationship Specialty Start Date End Date Pcp, No PCP - General Family Medicine 12/02/20
--- OUTSIDE RECORDS SUMMARY | 2025-05-20 09:50 | XMS_ITS | Encounter Summary ---
Author Organization [facility] Address [address] [place] [address] Care Team Providers Care Lab Analyst Name Role Phone Guillaume Barksdale MD Primary Care Provider [phone] Reason for Visit * Reason Onset Date Comments Pre Syncope 10/30/2024 Encounter Details Date Type Department Care Team ([facility] st Contact Info) Description 10/30/2024 Nurse Triage Adult Medicine [address] [phone] Guillaume Barksdale MD [address] [place] [address] Social History Tobacco Use Types Packs/Day Years [...] EDT She states she is at work ([employer]) and is still feeling weak and jittery. [...] (e.g., somewhat faint, woozy, weak upon standing) [place] lightheaded/dizzy and sweaty and clammy vomited and [...] 1 week ago Protocols used: Dizziness - [id number]-[id number] * Cathy Neff - 10/30/2024 9:28 AM EDT Patient almost passed out last night would like to speak to a triage nurse documented in this encounter Plan of Treatment Not on file documented as of this encounter Visit Diagnoses Not on filedocumented in this encounter Care Teams Lab Analyst Relationship Specialty Start Date End Date Guillaume Barksdale MD PCP - General Internal Medicine 03/05/21 documented as of this encounter
--- OUTSIDE RECORDS SUMMARY | 2025-05-20 09:50 | XMS_ITS | Encounter Summary ---
Author Organization [facility] Address [address] [place] [address] Phone Care Team Providers Care Business Services Administrator Name Role Phone Marysol Summers DO Primary Care Provider Unavaila ble Encounter Details Date Type Department Care Team (Late st Contact Info) Description 06/17/2011 Conversion Encounter [facility] [address] [place] [address] Social History Tobacco Use Types Packs/Day Years [...] on filedocumented in this encounter Care Teams Business Services Administrator Relationship Specialty Start Date End Date Marysol Summers DO PCP - General 12/28/17 documented as of this encounter
--- OUTSIDE RECORDS SUMMARY | 2025-05-20 09:50 | XMS_ITS | Clinical Summary ---
Author Organization [facility] Address [address] [place] [id number] Phone Care Team Providers Care Assembler Carbon Brushes Name Role Phone Marysol Summers DO Primary [...] to complete this topic Insurance [facility] [place] [address] Care Teams Assembler [employer] Brushes Relationship Specialty Start Date End Date Marysol Summers DO PCP - General 12/28/17
[2025-05-20 10:45] LABS: Alanine Aminotransferase 20 U/L (0-31); Albumin Level 4.5 g/dL (3.5-5.0); Alkaline Phosphatase 59 U/L (39-117); Anion Gap 10 (12-20); Aspartate Amino Transferase 17 U/L (5-31); Blood Urea Nitrogen 8 mg/dL (9-16); Calcium 9.6 mg/dL (8.4-10.2); Carbon Dioxide 27 mmol/L (22-29); Chloride 106 mmol/L (96-108); Cholesterol 215 mg/dL (<200); Estimated Glomerular Filt Rate > 60; HDL Cholesterol 66 mg/dL (>40); Potassium 4.4 mmol/L (3.3-5.1); Sodium 139 mmol/L (135-145); Total Protein 7.5 g/dL (6.5-8.0); Triglycerides 73 mg/dL (<150)
[2025-05-20 10:49] LABS: Syphilis Screen Nonreactive (Nonreactive)
[2025-05-20 11:26] LABS: CT PCR Urine NOT DETECTED (Not Detect.); NG PCR Urine NOT DETECTED (Not Detect.)
[2025-05-20 11:34] LABS: HIV Num 1 0.07 S/CO (0.00-0.99)
== END 2025-05-20 09:11 | disposition home or self-care (01) ==
LOC: HO.LAB 09:10
PROVIDERS: PCP Physician Assistant; Visit Provider Physician Assistant
DX: Z00.00 Encounter for general adult medical examination without abnormal findings (principal); Z20.2 Contact with and (suspected) exposure to infections with a predominantly sexual mode of transmission; Z11.4 Encounter for screening for human immunodeficiency virus [HIV]; Z13.6 Encounter for screening for cardiovascular disorders; K58.1 Irritable bowel syndrome with constipation; F31.81 Bipolar II disorder; F41.9 Anxiety disorder, unspecified
CPT/HCPCS: 80048; 80061; 80076; 82306; 84443; 85025; 86780; 87389; 87491; 87591

== ENCOUNTER 2025-07-02 12:15 | Outpatient (RCR) | payer OTHER, SELFPAY ==
[2025-06-07 09:35] VITALS: BMI 28.7
[2025-06-07 09:36] VITALS: BP 110/70; PULSE 60; TEMP 37.4
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
--- NOTE | 2025-06-14 07:53 | HO.PHP ---
Brittany's case was opened during treatment team meeting
--- NOTE | 2025-06-24 13:23 | P.PNPSP_ITS ---
Subjective Subjective Date of Service: 06/24/25 Reason For Visit: bipolar,PTSD Interim History: 30 yo who started on lamotrigine and abilify while waiting for lamotrigine to work to help depression- tolerated 2 wks of 25mg lamotrigine- no rash/ no worsening of dep/or si willing to continue titration Medication Compliance: Yes Side effects from medications: No Attending Groups: Yes Review of Systems Acute medical concerns: No Medical Review of Systems: unchanged Mental Status Exam Mental Status Exam Patient Appearance: Well Grooomed and Appropriate Patient Orientation: Person, Place, Time and Situation Level of Consciousness: Awake and Appropriate Patient Behavior: Appropriate and Good Eye Contact Mood Description: Calm and Cheerful Affect Description: Expansive (?or just relief from being here and getting help - ) Patient Cognition Impaired: No Ability to Follow Directions: Good Speech Pattern: Clear Hallucinations: None Delusions: Not Present Thought Process: Intact Thought Content: positive for Goal Oriented Judgement: Fair Diagnostics Vital Signs (24Hr): BMI result Body Mass Index 28.7 Assessment & Plan Assessment & Plan (1) Bipolar II disorder: Status: Acute Code(s): F31.81 - Bipolar II disorder (2) Anxiety: Status: Acute Code(s): F41.9 - Anxiety disorder, unspecified (3) PTSD (post-traumatic stress disorder): Status: Acute Code(s): F43.10 - Post-traumatic stress disorder, unspecified (4) Cannabis abuse: Status: Acute Code(s): F12.10 - Cannabis abuse, uncomplicated Plan discussed harm reduction re MJ use, Also med for night not helping her sleep we discussed trial of clonidine for settling thoughts ( possible adhd like racing of thoughts at night) Patient educated on: medication risk/benefits Informed Consent: understands Reason for contiued partial hosp. stay Substantial Risk for: rapid decompensation Certification I certify that partial hospital treatment is medically necessary due to the symptoms and problems resulting from the patient's mental illness and the failure to treat the patient at the partial hospital level of care would likely result in the patient requiring inpatient psychiatric care which could not be prevented at a less intensive level of care. Total time managing care of this patient today ____ minutes. Discharge Plan Discharge Attending provider: Yarelis Pa Medications: New aripiprazole 2 mg tablet 2 mg PO BEDTIME Qty: 20 0RF clonidine HCl 0.1 mg tablet 0.1 mg PO BEDTIME 14 Days Qty: 14 0RF Continued albuterol sulfate 90 mcg/actuation HFA aerosol inhaler 2 puff INHALATION Q4H PRN (Reason: wheezing) Rx Instructions: INHALE 2 PUFFS BY MOUTH EVERY 4 (FOUR) HOURS IF NEEDED FOR WHEEZING OR SHOR TNESS OF BREATH. citalopram 40 mg tablet 40 mg PO QAM lamotrigine 25 mg tablet 50 mg PO DAILY hydroxyzine HCl 10 mg tablet 5 - 10 mg PO BEDTIME PRN (Reason: insomnia) Linzess 145 mcg capsule 145 mcg PO DAILY Changed lamotrigine 100 mg tablet 200 mg PO DAILY Qty: 60 0RF No Action ibuprofen 800 mg tablet 800 mg PO Q8H PRN (Reason: pain) Qty: 30 0RF Print Language: Nigerian
--- NOTE | 2025-07-02 21:26 | P.PNPSP_ITS ---
Subjective Subjective Date of Service: 07/02/25 Reason For Visit: bipolar,PTSD Interim History: Patient seen for follow-up, anticipating discharge at the end of program today.? some anxiety . Has been consistent with taking her ABilify 2 mg, Celexa 30 mg and Lamictal 200 mg. Well-tolerated. Will be meeting up with her psych provider next week. Reports no acute issues or concerns. Medication compliant, medications well- tolerated. Denies any adverse effects.? Mood is stable.? Denies any hopelessness or SI. Denies thoughts of harming self or others at this time. Denies any aggressive ideation or HI. Denies any paranoia or AH or VH. Sleep, appetite, energy stable. Medication Compliance: Yes Side effects from medications: No Attending Groups: Yes Review of Systems Acute medical concerns: No Mental Status Exam Mental Status Exam Narrative: Alert, oriented, in no acute distress. Calm, cooperative. Mood stable, affect appropriate. Speech normal. Thought process linear, coherent, more goal- directed. Thought content related to stressors, future-oriented, denies any helplessness, hopelessness or SI.? No aggressive ideation or HI. No paranoia or delusional content elicited. No evidence of psychosis. Insight and judgment fair-good. Diagnostics Vital Signs (24Hr): BMI result Body Mass Index 28.7 Assessment & Plan Assessment & Plan (1) Bipolar II disorder: Status: Acute Code(s): F31.81 - Bipolar II disorder (2) Anxiety: Status: Acute Code(s): F41.9 - Anxiety disorder, unspecified (3) PTSD (post-traumatic stress disorder): Status: Acute Code(s): F43.10 - Post-traumatic stress disorder, unspecified (4) Cannabis abuse: Status: Acute Code(s): F12.10 - Cannabis abuse, uncomplicated Plan Discharge from [facility] Continue regular medications? Refills sent to pharmacy Will defer further medication management to outpatient provider *Safety plan reviewed *Discharge diagnoses, treatment course, discharge plan have been reviewed with patient (including medication regime, medication management, potential side effects) as well as treatment rationale were also revisited *Discharge paperwork signed and given to patient, copy sent for scanning to chart Patient educated on: diagnosis, medication risk/benefits and substance abuse Informed Consent: understands Reason for contiued partial hosp. stay Substantial Risk for: stable for discharge Certification I certify that partial hospital treatment is medically necessary due to the symptoms and problems resulting from the patient's mental illness and the failure to treat the patient at the partial hospital level of care would likely result in the patient requiring inpatient psychiatric care which could not be prevented at a less intensive level of care. Total time managing care of this patient today _30___ minutes. Discharge Plan Discharge Attending provider: Yarelis Pa Medications: New citalopram 10 mg tablet 10 mg PO DAILY Qty: 30 0RF Rx Instructions: DOSE CHANGE: take one 10 mg tablet + 1/2 of 40 mg tablet = 30 mg/day cholecalciferol (vitamin D3) [Vitamin D3] 125 mcg (5,000 unit) tablet 125 mcg PO DAILY Qty: 30 3RF Continued albuterol sulfate 90 mcg/actuation HFA aerosol inhaler 2 puff INHALATION Q4H PRN (Reason: wheezing) Qty: 1 0RF Rx Instructions: INHALE 2 PUFFS BY MOUTH EVERY 4 (FOUR) HOURS IF NEEDED FOR WHEEZING OR SHORTNESS OF BREATH. aripiprazole 2 mg tablet 2 mg PO BEDTIME Qty: 30 0RF ibuprofen 800 mg tablet 800 mg PO Q8H PRN (Reason: pain) Qty: 30 0RF Linzess 145 mcg capsule 145 mcg PO DAILY Changed lamotrigine 100 mg tablet 200 mg PO DAILY Qty: 60 0RF citalopram 40 mg tablet 20 mg PO QAM Qty: 30 0RF Discontinued lamotrigine 25 mg tablet 50 mg PO DAILY hydroxyzine HCl 10 mg tablet 5 - 10 mg PO BEDTIME PRN (Reason: insomnia) Patient Education: Mood Disorders (DC), Anxiety (ED) Print Language: Sammarinese
== END 2025-07-02 23:59 | disposition home or self-care (01) ==
LOC: HO.PHPA 12:15
PROVIDERS: Visit Provider Psychiatry & Neurology Psychiatry
DX: F31.81 Bipolar II disorder (principal); F43.10 Post-traumatic stress disorder, unspecified; F41.1 Generalized anxiety disorder; F12.10 Cannabis abuse, uncomplicated; Z79.899 Other long term (current) drug therapy
CPT/HCPCS: 90791; 90853

== ENCOUNTER 2025-08-14 09:01 | Outpatient (AMB) | payer OTHER, SELFPAY ==
--- NOTE | 2025-08-14 08:46 | MHC.PC.OV ---
Intake Visit Reasons: Flu Shot Allergies adhesive tape Allergy (Verified 06/07/25 09:35) Rash Tobacco use date assessed: 05/14/25 Dental Screening Dental Screen Date: 05/14/25 [facility] Medical History (Updated 08/14/25 @ 11:08 by Sanjeev Reed MD) Encounter for immunization Anxiety PTSD (post-traumatic stress disorder) Bipolar II disorder Irritable bowel syndrome with constipation Chronic back pain Scoliosis Asthma Bilateral knee pain Spasm of muscle of lower back Surgical History S/P tonsillectomy Family History Mother Mental health disorder HTN (hypertension) Father Substance abuse HTN (hypertension) Paternal Grandmother Diabetes Maternal Grandfather CAD (coronary artery disease), Onset Age: 55 Maternal Grandmother COPD (chronic obstructive pulmonary disease) Social History Household Members: None and Other Household Members Other:: Cat Housing: Apartment Patient Tobacco Use Status: Never used Tobacco Tobacco use type: Cigarette e-Cigarette/Vaping Use: Never Used service: No Current occupational status: employed Cognitive needs: No Hearing needs: No Vision needs: No Questionnaire Thrive Questionnaire Date Thrive assessed: 05/14/25 ROCIO-7 AMB Questionnaire ROCIO-7 Date ROCIO - 7 assessed: 05/14/25 Source: Developed by Drs. Xiang Oliva, Lucia Parikh, Robi Smith and colleagues, with an educational rico from [address]. Physical exam (Primary Care) Tobacco/Smoking Status: Tobacco use Status Tobacco use date assessed 05/14/25 08/14/25 08:47 Patient Tobacco Use Status Never used Tobacco 08/14/25 08:47 Tobacco use type Cigarette 08/14/25 08:47 e-Cigarette/Vaping Use Never Used 08/14/25 08:47 Thrive Assessment: Date of Thrive Assessment Date Thrive assessed 05/14/25 08/14/25 08:47 Office Procedures Flu Questionnaire Does the patient have a severe egg allergy?: No Does the patient have severe life threatening allergies?: No Does the patient have a fever or illness today?: No Has the patient ever had Guillain-[place] Syndrome?: No Has the patient ever had any past reaction to a flu shot?: No Immunizations Fluzone High-Dose (PF) 180 mcg/0.5 mL intramuscular syringe Performing Provider: Sanjeev Reed MD Performing Location: [facility] Adult Primary Care-10 HD Administered by: Lindsay Jj CMA on 08/14/25 08:47 Dose Route Admin Location Dispensed Lot Number Expiration Date NDC [employer] 0.5 mL IM Left Deltoid 0.5 mL [id number] 02/18/26 58610-230-74 [employer] Total Dispensed Waste 0.5 mL 0 % VIS Given Date VIS Provided VIS Publication Date 08/14/25 Single Vaccine 24 Eligibility Eligibility Date Funding Source Not [facility] Eligible 08/14/25 Private Coding Level of Care Code Procedure Only Diagnoses Encounter for immunization Z23 Assessment & Plan Assessment & Plan (1) Encounter for immunization: Code(s): Z23 - Encounter for immunization Category: Medical Plan Flu shot admiinstered Orders: Orders Influenza [id number] High Dose Immunization Today Z23 - Encounter for immunization
--- OUTSIDE RECORDS SUMMARY | 2025-08-14 09:07 | XMS_ITS | Clinical Summary ---
Author Organization [address] Address [address] [place] [id number] Phone Care Team Providers Care Security Control Center Operator Name Role Phone Guillaume Barksdale MD Primary Care Provider [phone] Allergies Active Allergy Reactions Criticality Noted Date Comments Banana 02/19/2021 Oas Blueberry Flavor 02/19/2021 OAS Kiwi (Actinidia Chinensis) [address] OAS [employer] 02/19/2021 OAS Medications citalopram (CeleXA) 40 mg [...] 03/13/2019 Overview (08/02/2024): History Bipolar 2 disorder 01/29/2019 Scoliosis 01/29/2019 Overview (08/02/2024): Braced age 12-13 for 1 year. No longer follows at [facility] for this. Disc degeneration of L2 Anxiety 01/22/2019 Irritable bowel syndrome 01/22/2019 Overview (08/02/2024): Dr Iqbal Immunizations Immunization Administration Dates Next Due DTaP (Infanrix) 6wks to less than 7yo ,1996,1996,06/14 JBoA-SMI-WHO (Pentacel) 2mo to less than 5yo 03/14/1997,1996,1996,06/14 [...] no report UPPER GASTROINTESTINAL ENDOSCOPY 03/16/2016 PROCEDURE: [place] UPPER GI ENDOSCOPY PERFORMED; COMMENT: no report [...] DX:Bilate ral hip bursitis Bipolar 2 disorder ([facility] V24, CMS/HCC V28) 01/29/2019 DX:Bipolar 2 disorder ([facility]) Scoliosis 01/29/2019 DX:Scoliosis; CO MMENT: Braced age 12-13 for 1 year. No longer follows at [facility] for this. 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 DX:DDD (degenerative disc di sease), thoracic Esophageal reflux DX:Esophageal reflux Family History Medical History Relation Name Comments Hypertension Brother 1 Donny High cholestero l Other: scoliosis Brother 2 Memo Alcohol abuse Father Sanjay HTN Diabetes Father's side great aunt Coronary artery disease Maternal Grandfather NC (50s), hypercholesterolemia COPD Maternal Grandmother asthma Asthma Mother Lindsey HTN, HLD, anemi a, bipolar1, anxiety, hearing loss, prediabetes, COPD (+smoker), seasonal allergies Diabetes Paternal Grandmother HTN No Known Problems Sister Shipedro Mental illness Uncle paternal Relation Name Status Comments Brother 1 Donny Alive Brother 2 Memo Alive Father Sanjay Alive Father's side great aunt Maternal Grandfather Maternal Grandmother Alive Mother Lindsey Alive Paternal Grandfather unknown Other Paternal Grandmother Alive Sister Shiana Alive Uncle paternal Social History Tobacco Use Types Packs/Day Years Used Date Smoking Tobacco: Former Cigarettes 0.3 Q uit: 10/21/2015 Smokeless Tobacco: Never Tobacco [...] Health Maintenance Due Date Last Done Comments Drug Screen 1996 Non-Opioid Controlled Substance Agreement 1996 Pneumococcal Vaccine: Pediatrics (0 to 5 Years) and At-Risk Patients (6 to 49 Years) (1 of 2 - PCV) 2015 Cervical Cancer Screening: Pap Smear 2017 Social Influencers of Health Screening 07/24/2022 Depression Screening 08/22/2024 COVID-19 Vaccine (3 - 2024- season) 2025 01/22/2021, 01/01/2021 Influenza Vaccine (#1) 2025 , 06/07/2022, 06/02/2021, Additional history exists Cholesterol Screening (Lipid Panel) 12/29/2027 12/28/2022 DTaP,Tdap,and Td Vaccines (8 - Td or Tdap) 01/29/2029 01/29/2019, 01/31/2014, 02/16/2008, Additional history exists RSV Immunization Adult Patients (1 - 1-dose 75+ series) 2071 Hepatitis B Vaccines Completed 1996, 1996, 1996 [...] Maintenance Results * (ABNORMAL) Lipid panel (12/28/2022) Pathologist [facility] LDL/HDL Ratio 3 0 - 4 Triglycerides 64 0 - 150 mg/dL Cholesterol 195 0 - 200 mg/dL HDL 72 >=40 mg/dL LDL Cholesterol 111(A) 0 - 100 mg/dL Blood Venous blood specimen / Unknown Historical Provider LAB BLOOD ORDERABLES Nicki l Result * HIV Screening (04/02/2019) Pathologist [facility] HIV Screening Abstracted us Historical Provider HEALTH MAINTENANCE Final Result * Hepatitis C Screening (04/02/2019) Hepatitis C Screening Abstracted Historical Provider HEALTH MAINTENANCE Final Result from Last 3 Months or Most Recently Relevant to Health Maintenance Insurance [facility] Care Teams Security Control Center Operator Relationship Specialty Start Date End Date Guillaume Barksdale MD PCP - General Internal Medicine 03/05/21
--- OUTSIDE RECORDS SUMMARY | 2025-08-14 09:07 | XMS_ITS | Encounter Summary ---
Author Organization [facility] Address [address] [place] [address] Phone Care Team Providers Care Heavy Equipment Operating Engineer Name Role Phone Marysol Summers DO Primary Care Provider Unavaila ble Encounter Details Date Type Department Care Team (Late st Contact Info) Description 06/17/2011 Conversion Encounter [facility] [address] [place] [address] Social History Tobacco Use Types Packs/Day Years [...] on filedocumented in this encounter Care Teams Heavy Equipment Operating Engineer Relationship Specialty Start Date End Date Marysol Summers DO PCP - General 12/28/17 documented as of this encounter
--- OUTSIDE RECORDS SUMMARY | 2025-08-14 09:07 | XMS_ITS | Clinical Summary ---
Author Organization [facility] Address [address] [place] [id number] Phone Care Team Providers Care Rolled Materials Worker Name Role Phone Marysol Summers DO Primary [...] patient's age to complete this topic Insurance [facility] MEDICAID Care Teams Rolled Materials Worker Relationship Specialty Start Date End Date Marysol Summers DO PCP - General 12/28/17
--- OUTSIDE RECORDS SUMMARY | 2025-08-14 09:07 | XMS_ITS | Encounter Summary ---
Author Organization [facility] Address [address] [place] [address] Care Team Providers Care Craft Center Director Name Role Phone Guillaume Barksdale MD Primary Care Provider [phone] Reason for Visit * Reason Onset Date Comments Pre Syncope 10/30/2024 Encounter Details Date Type Department Care Team ([facility] st Contact Info) Description 10/30/2024 Nurse Triage Adult Medicine [address] [phone] Guillaume Barksdale MD [address] [place] [address] Social History Tobacco Use Types Packs/Day Years Used Date Smoking Tobacco: Former Cigarettes 0.3 Q uit: 10/21/2015 Smokeless Tobacco: Never Alcohol [...] EDT She states she is at work ([employer]) and is still feeling weak and jittery. [...] (e.g., somewhat faint, woozy, weak upon standing) [place] lightheaded/dizzy and sweaty and clammy vomited and [...] 1 week ago Protocols used: Dizziness - [id number]-ON * Cathy Neff - 10/30/2024 9:28 AM EDT Patient almost passed out last night would like to speak to a triage nurse documented in this encounter Plan of Treatment Not on file documented as of this encounter Visit Diagnoses Not on filedocumented in this encounter Care Teams Craft Center Director Relationship Specialty Start Date End Date Guillaume Barksdale MD PCP - General Internal Medicine 03/05/21 documented as of this encounter
--- OUTSIDE RECORDS SUMMARY | 2025-08-14 09:07 | XMS_ITS | Clinical Summary ---
Author Organization [facility] [facility] [employer] Address [address] [facility] [place] [address] Care Team Providers Care Diagnostic Assistant Name Role Phone Pcp, No Primary Care Provider [phone] Allergies Active Allergy Reactions Criticality Noted Date Comments Banana 02/19/2021 Oas Blueberry Flavor 02/19/2021 OAS Kiwi (Actinidia Chinensis) OAS [place] 02/19/2021 OAS Medications albuterol (VENTOLIN HFA) 90 [...] Mass Index - - Plan of Treatment Not on file Medical Devices Not on file Insurance [facility] Care Teams Diagnostic Assistant Relationship Specialty Start Date End Date Pcp, No PCP - General Family Medicine 12/02/20
== END 2025-08-14 09:01 | disposition home or self-care (01) ==
LOC: HO.HMCHD 09:01
PROVIDERS: PCP Student in an Organized Health Care Education/Training Program; Visit Provider Student in an Organized Health Care Education/Training Program
DX: Z23 Encounter for immunization (principal)

== ENCOUNTER → 2025-08-14 09:01 | Outpatient (BNVA) | payer OTHER, SELFPAY | PROVIDERS: PCP Student in an Organized Health Care Education/Training Program; Visit Provider Student in an Organized Health Care Education/Training Program | DX: Z23 Encounter for immunization (principal) | CPT/HCPCS: 90471; 90662 ==